=== PATIENT | female | born 1965 | race Caucasian/White ===

== ENCOUNTER 2021-05-02 09:30 | Emergency (ER) | payer OTHER, SELFPAY ==
--- NOTE | 2021-05-02 10:58 | ED.SKABFB ---
HPI - Skin/Abscess/Foreign Bdy General Chief complaint: Skin/Abscess/Foreign Body Stated complaint: RASH Time Seen by Provider: 05/02/21 10:48 Source: patient Mode of arrival: ambulatory Limitations: no limitations History of Present Illness MD complaint: rash Onset (ago): month(s) (On and off for 3 months) Location: generalized (Left side of the abdomen) Severity: mild Quality: pruritic Pain Consistency: intermittent Relieving factors: other (Patient reports she has been seen by multiple ERs/urgent cares and given multiple antifungal and topical creams and she reports that the hydrocortisone cream helped the rash although the rash came back after she discontinued using the hydrocortisone) Exacerbating factors: none Context: none Associated symptoms: denies other symptoms Treatments prior to arrival: other (She has tried multiple medications which include hydrocortisone cream and multiple antifungal creams and only improvement with hydrocortisone cream) Related Data Previous Rx's Medication Instructions Recorded cephalexin 500 mg capsule 500 mg PO Q6H 10 Days #40 cap 05/02/21 diphenhydramine HCl 25 mg tablet 50 mg PO TID PRN #10 tab 05/02/21 (Benadryl Allergy) doxycycline monohydrate 100 mg 100 mg PO BID 10 Days #20 cap 05/02/21 capsule hydrocortisone 2.5 % topical 1 appl TOPICAL QD-TID PRN #454 g 05/02/21 ointment Allergies Allergy/AdvReac Type Severity Reaction Status Date / Time Penicillins Allergy Rash Verified 05/02/21 11:04 Review of Systems Review of Systems: Constitutional : No Fever, No Chills , no body aches, no recent illness Head/Face: No facial swelling, No facial redness ENT/Mouth : No oral/throat swelling, No Hoarseness, No Swallowing Difficulty Eyes: No Eye Pain, No Swelling, No Redness Cardiovascular : No Chest Pain, No SOB, No palpitations Respiratory : No Cough, No Sputum, No Wheezing, No Smoke Exposure, No Dyspnea Gastrointestinal : No Nausea, No Vomiting, No Diarrhea, No abdominal Pain Genitourinary : No Dysuria, No Urinary Frequency, No Hematuria Musculoskeletal : No joint pain, No Myalgias, No Joint Swelling Skin : No Skin Lesions, positive rash Neuro : No Weakness, No Numbness, No Headache, No dizziness, No tingling Psych : No Anxiety/Panic, No Depression Heme/Lymph: No Bruising, No Lymphadenopathy Endocrine : No Polyuria, No Polydipsia Denies changes in lotions or detergents. Denies new medications or any changes in medications. Denies drainage from rash. Denies any recent sick contacts or recent travel. Yes all other systems are reviewed and are negative [facility] [place] Past Medical History Attestation statement: The following information was validated with the patient. Social History Social History Patient : No Physical Exam Vital Signs: Vital Signs: vital signs have been reviewed as normal and appeared to be correct. Blood pressure normal. Heart rate normal. Respiration rate normal. Temperature normal. Oxygen saturation normal. Appearance: Alert. Oriented X3. No acute distress. Head: Normal external exam. Normocephalic. Atraumatic. Eyes: PERRLA. EOMI. Conjunctiva and sclera normal. Eyelids normal. ENT: Pharynx normal. Uvula midline. Moist mucous membranes. Neck: Normal inspection. Neck supple. FROM. No adenopathy. Thyroid Normal. No meningeal signs. No neck mass noted. CVS: Normal heart rate and rhythm. Heart sound normal. Pulses normal throughout. No murmurs/rales/gallops. Respiratory: No respiratory distress. Painless inspiration. Breath sounds normal. No wheezes/rales/rhonchi noted. Chest nontender. No accessory muscle usage noted or decreased air movement noted. Abdomen: Soft and nontender. Bowel sounds normal in all 4 quadrants. No distention noted. No organomegaly noted. No visible injury noted. Patient noted to have dry and scaly dermatitis on the left side of the abdomen possibly consistent with eczema. No purulent drainage/streaking/induration/signs of infection noted. Not consistent with shingles. Not consistent with cellulitis. Back: Full range of motion noted. No additional rashes/lesion/induration/fluctuance or signs of infection noted. Skin: Skin warm and dry. Normal skin color. Normal skin turgor. No rashes/lesions/lacerations noted. Extremities: Extremities exhibit normal range of motion. Extremities nontender. Neuro: Oriented X 3. No motor deficit. No sensory deficit. Reflexes normal. Normal steady gait. No focal neuro deficits noted. Course Course Course Narrative: 55-year-old female presenting to the ED with complaints of a rash to the left side of her abdomen that has been intermittent for the past 3 months where she has seen multiple providers went to multiple ERs and urgent cares provide antifungal and hydrocortisone she reports that the hydrocortisone cream helped the rash completely go away although shortly after she noticed the rash started again and she is unsure why. She reports she is no longer using the creams although she has a whole pharmacy of creams in her house. I explained to her that this is most likely eczema especially if it went away with the hydrocortisone cream and did not go away with antifungal is. She also reported that she has an appointment with her microwave oven assembler in approximately a month and she was asking for sooner appointment I explained to her that that is most likely the soonest appointment that she would be able to get in with a microwave oven assembler. I explained to her that she needs to return if any new or worsening symptoms to follow up with her primary care provider and to go to her microwave oven assembler when she is scheduled. Patient understands agrees with this plan. MDM - Skin/Abscess/Foreign Bdy Medical Records Attestation: I reviewed the patient's medical records. Discharge Plan Discharge Clinical Impression: Eczema, Cellulitis Patient Disposition: Home, Self-Care Instructions: Cellulitis (ED), Eczema (ED) Prescriptions: New diphenhydramine HCl [Benadryl Allergy] 25 mg tablet 50 mg PO TID PRN (Reason: itching) Qty: 10 RF: 0 doxycycline monohydrate 100 mg capsule 100 mg PO BID 10 Days Qty: 20 RF: 0 cephalexin 500 mg capsule 500 mg PO Q6H 10 Days Qty: 40 RF: 0 hydrocortisone 2.5 % ointment 1 appl topical QD-TID PRN (Reason: skin irritation) Qty: 454 RF: 0 Referrals: Odalis Ernandez MD [Physician] - 1 day (Call today to make a follow-up appointment take the soonest appointment they have available if possible) Print Language: Turkmen
[2021-05-02 11:01] VITALS: BP 124/73; PULSE 85; RESP 18; TEMP 36.7; O2SAT 97; BMI 45.4
== END 2021-05-02 11:33 | disposition home or self-care (01) ==
LOC: HO.ED 11:08
PROVIDERS: Emergency Provider Emergency Medicine; PCP Internal Medicine Sports Medicine
DX: L29.9 Pruritus, unspecified (principal); L30.9 Dermatitis, unspecified; Z79.899 Other long term (current) drug therapy
CPT/HCPCS: 99283